=== PATIENT | male | born 1950 | race Caucasian/White ===

== ENCOUNTER 2016-09-08 09:57 | Observation (INO) | payer SELFPAY ==
--- NOTE | 2016-09-08 10:33 | ER Document Report ---
ED Neuro Symptoms/Deficit - General Mode of Arrival: Ambulatory Information source: Patient, Relative TRAVEL OUTSIDE OF THE [place] IN LAST 30 DAYS: No - HPI Patient complains to provider of: Other - confusion Associated symptoms: Other - See above <ABDI CHAVIS - Last Filed: 09/08/16 10:41> <KRISTAL PABLO - Last Filed: 09/08/16 12:00> - General Chief Complaint: Altered Mental Status Stated Complaint: Confusion Notes: Patient is a 65 year old male, with a past medical history including diabetes, who presents to the emergency department complaining of confusion for the past 3 days. Patient states that he has been having difficulty vocalizing where he is and concentrating in general. Patient also complains of heaviness/weakness in his right arm that began with the confusion on Sunday. It is unclear if his complaints were present when he woke up or not. Patient is currently on after having a boil drained on 08/30. Patient is also taking Metformin regularly. Patient is visiting the area from [place] and drove the 12 hours down 6 days ago. (ABDI CHAVIS) Patient's symptoms started 3 days ago, therefore he is not a TPA candidate. ( KRISTAL PABLO) - Related Data Allergies/Adverse Reactions: No Known Allergies Allergy (Unverified 09/08/16 10:07) Past Medical History - General Information source: Patient - Social History Smoking Status: Current Every Day Smoker Cigarette use (# per day): Yes - 1 ppd Frequency of alcohol use: Occasional Occupation: retired Family History: Reviewed & Not Pertinent Patient has suicidal ideation: No Patient has homicidal ideation: No Endocrine Medical History: Reports: Hx Diabetes Mellitus Type 2 Infectious Medical History: Reports: Other - Hx blood infection <ABDI CHAVIS - Last Filed: 09/08/16 10:41> Review of Systems - Review of Systems Constitutional: No symptoms reported EENT: No symptoms reported Cardiovascular: No symptoms reported Respiratory: No symptoms reported Gastrointestinal: No symptoms reported Genitourinary: No symptoms reported Male Genitourinary: No symptoms reported Musculoskeletal: No symptoms reported Skin: No symptoms reported Hematologic/Lymphatic: No symptoms reported Neurological/Psychological: See HPI, Confusion, Weakness -: Yes All other systems reviewed and negative <ABDI CHAVIS - Last Filed: 09/08/16 10:41> Physical Exam - Vital signs Interpretation: Normal - General General appearance: Appears well, Alert - HEENT Head: Normocephalic, Atraumatic Neck: No: Carotid bruit - Respiratory Respiratory status: No respiratory distress Chest status: Nontender Breath sounds: Normal Chest palpation: Normal - Cardiovascular Rhythm: Regular Heart sounds: Normal auscultation Murmur: No - Neurological Neuro grossly intact: Yes Cognition: Normal - slow in communicating Orientation: AAOx4 Jono Coma Scale Eye Opening: Spontaneous [place] Coma Scale Verbal: Oriented [place] Coma Scale Motor: Obeys Commands [place] Coma Scale Total: 15 Speech: Normal - clear Cerebellar coordination: Other - Finger-nose test fail on right side, patient went from finger to left chin. 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, Dorsiflexion - right 4/5, left 5/5 Sensory: Normal - Psychological Associated symptoms: Normal affect, Normal mood - Skin Skin Temperature: Warm Skin Moisture: Dry Skin Color: Normal <ABDI CHAVIS - Last Filed: 09/08/16 10:41> Course - Laboratory Result Diagrams: 09/08/16 10:20 09/08/16 10:20 <ABDI CHAVIS - Last Filed: 09/08/16 10:41> - Laboratory Result Diagrams: 09/08/16 10:20 09/08/16 10:20 - Diagnostic Test Radiology reviewed: Image reviewed, Reports reviewed - Old left parietal lacunar infarct - EKG Interpretation by Hi EKG shows normal: Sinus rhythm, [place], Intervals, QRS Complexes, ST-T Waves Rate: Normal - 82 Rhythm: NSR When compared to previous EKG there are: Previous EKG unavailable - Consults Crystal Alejandro Time consulted: 11:55 Consulted provider: will come to ER <KRISTAL PABLO - Last Filed: 09/08/16 12:00> - Vital Signs Vital signs: Temp Pulse Resp BP Pulse Ox 98.4 F 72 16 154/103 H 96 09/08/16 10:06 09/08/16 10:10 09/08/16 10:27 09/08/16 10:27 09/08/16 10:27 - Laboratory Laboratory results interpreted by me: 09/08/16 09/08/16 09/08/16 10:20 10:20 10:20 RBC 6.08 H MCH 26.9 L RDW 14.6 H Potassium 5.6 H Glucose 307 H Hemoglobin A1c % 11.5 H Calcium 10.8 H Direct Bilirubin 0.5 H Creatine Kinase 29 L Discharge <ABDI CHAVIS - Last Filed: 09/08/16 10:41> - Discharge Admitting Provider: Hospitalist Unit Admitted: IMCU <KRISTAL PABLO - Last Filed: 09/08/16 12:00> - Discharge Clinical Impression: Poorly controlled diabetes mellitus Cerebrovascular accident (CVA) Qualifiers: CVA mechanism: unspecified Qualified Code(s): I63.9 - Cerebral infarction, unspecified Hypertension Qualifiers: Hypertension type: unspecified secondary hypertension Qualified Code(s): I15.9 - Secondary hypertension, unspecified; I15 - Secondary hypertension Condition: Stable Disposition: ADMITTED INPATIENT Scribe Documentation - Scribe Written by Scribe:: janey Drake, 09/08/16, 1039 acting as scribe for :: Steph <ABDI CHAVIS - Last Filed: 09/08/16 10:41>
[2016-09-08 10:45] LABS: ABSOLUTE BASOPHILS # (AUTO) 0.1 10^3/uL (0.0-0.2); ABSOLUTE EOSINOPHILS # (AUTO) 0.4 10^3/uL (0.0-0.6); ABSOLUTE LYMPHOCYTES (AUTO) 2.5 10^3/uL (0.5-4.7); ABSOLUTE MONOCYTES (AUTO) 0.9 10^3/uL (0.1-1.4); ABSOLUTE NEUT (AUTO) 4.5 10^3/uL (1.7-8.2); BASOPHILS % (AUTO) 1.2 % (0-2); EOSINOPHILS % (AUTO) 4.5 % (0-6); HEMATOCRIT 49.4 % (37.9-51.0); HEMOGLOBIN 16.4 g/dL (13.5-17.0); HGB HCT DIFFERENCE -0.2; LYMPHOCYTES % (AUTO) 30.2 % (13-45); MEAN CORPUSCULAR HEMOGLOBIN 26.9 pg (27.0-33.4); MEAN CORPUSCULAR HGB CONC 33.1 g/dL (32.0-36.0); MEAN CORPUSCULAR VOLUME 81 fl (80-97); RED BLOOD COUNT 6.08 10^6/uL (4.35-5.55); RED CELL DISTRIBUTION WIDTH 14.6 % (11.5-14.0); SEGMENTED NEUTROPHILS % (AUTO) 53.1 % (42-78); WHITE BLOOD COUNT 8.4 10^3/uL (4.0-10.5)
[2016-09-08 10:52] LABS: PROTHROMBIN TIME 12.1 SEC (11.4-15.4)
[2016-09-08] MEDS ORDERED: ONDANSETRON HCL INJ/PF 4 MG/2 ML SDV IV ONE (11:00)
[2016-09-08 11:06] LABS: ALANINE AMINOTRANSFERASE 37 U/L (21-72); ALBUMIN 4.4 g/dL (3.5-5.0); ALKALINE PHOSPHATASE 113 U/L (38-126); ANION GAP 12 (5-19); ASPARTATE AMINO TRANSFERASE 38 U/L (17-59); BILIRUBIN,DIRECT 0.5 mg/dL (0.0-0.4); BILIRUBIN,TOTAL 0.7 mg/dL (0.2-1.3); BLOOD UREA NITROGEN 19 mg/dL (7-20); CALCIUM 10.8 mg/dL (8.4-10.2); CARBON DIOXIDE 27 mmol/L (22-30); CHLORIDE 98 mmol/L (98-107); CREATINE KINASE 29 U/L (55-170); CREATININE RESULT 0.89 mg/dL (0.52-1.25); GLUCOSE 307 mg/dL (75-110); POTASSIUM 5.6 mmol/L (3.6-5.0); SODIUM 137.2 mmol/L (137-145); TOTAL PROTEIN 7.9 g/dL (6.3-8.2)
[2016-09-08 11:17] LABS: CREATINE KINASE MB 0.29 ng/mL (<4.55)
[2016-09-08 11:18] LABS: TROPONIN I < 0.012 ng/mL
--- NOTE | 2016-09-08 11:50 | RADIOLOGY REPORT (SQ) ---
EXAM DESCRIPTION: CT HEAD WITHOUT COMPLETED DATE/TIME: 09/08/2016 11:29 am REASON FOR STUDY: confusion, R side weakness x 3 days COMPARISON: None. TECHNIQUE: Axial images acquired through the brain without intravenous contrast. Images reviewed wi th bone, brain and subdural windows. Images stored on PACS. All CT scanners at this facility use dose modulation, iterative reconstruction, and/or weight based d osing when appropriate to reduce radiation dose to as low as reasonably achievable (ALARA). [facility]: Dose Right [facility]: CareDose [facility]: Dose Right [facility]: Teradose 4D [facility]: Smart Oxsensis RADIATION DOSE: Up-to-date CT equipment and radiation dose reduction techniques were employed. CTDIv ol: 64.6 mGy. DLP: 1163 mGy-cm. mGy. LIMITATIONS: None. FINDINGS: VENTRICLES: Normal size and contour. CEREBRUM: No masses. No hemorrhage. No midline shift. Normal arteaga/white matter differentiation. N o evidence for acute infarction. There is an 8 mm low-density lesion in the left parietal lobe on im age 23. CEREBELLUM: No masses. No hemorrhage. No alteration of density. No evidence for acute infarction. EXTRAAXIAL SPACES: No fluid collections. No masses. ORBITS AND GLOBE: No intra- or extraconal masses. Normal contour of globe without masses. CALVARIUM: No fracture. PARANASAL SINUSES: No fluid or mucosal thickening. SOFT TISSUES: No mass or hematoma. OTHER: No other significant finding. IMPRESSION: 1. There is no acute intracranial pathology. 2. There is an 8 mm low-density lesion in the left parietal lobe suggestive of a small old lacunar i nfarct versus perivascular space. TECHNICAL DOCUMENTATION: JOB ID: [id number] Quality ID # [id number]: Final reports with documentation of one or more dose reduction techniques (e.g., Au tomated exposure control, adjustment of the mA and/or kV according to patient size, use of iterative reconstruction technique) 2010 [employer]- All Rights Reserved
[2016-09-08] MEDS ORDERED: TEMAZEPAM 15 MG CAPSULE PO PRN (12:16)
[2016-09-08] MEDS ORDERED: MAGNESIUM HYDROXIDE SUSP 30 ML UDCUP PO PRN (12:16)
[2016-09-08] MEDS ORDERED: ACETAMINOPHEN 325 MG TABLET PO PRN ×2 (12:16→17:53)
[2016-09-08] MEDS ORDERED: ONDANSETRON HCL INJ/PF 4 MG/2 ML SDV IV PRN (12:16)
[2016-09-08] MEDS ORDERED: GLUCAGON,HUMAN RECOMB 1 MG INJ IM PRN (12:45)
[2016-09-08] MEDS ORDERED: DEXTROSE 50%-WATER 25 GM/50 ML DISP.SYRIN IV PRN ×2 (12:45)
[2016-09-08] MEDS ORDERED: DEXTROSE 40% GEL 15 GM TUBE PO PRN ×2 (12:45)
--- NOTE | 2016-09-08 13:49 | PDOC H&P ---
History of Present Illness Admission Date/PCP: 09/08/16 12:26 Patient complains of: Right upper arm weakness, right visual field disturbance History of Present Illness: Patient is a 65 year old male, with a past medical history including diabetes, and tobacco abuse, who presents to the emergency department complaining of confusion for the past 3 days and right arm weakness. Patient states that he has been having difficulty vocalizing where he is and concentrating in general. Patient also complains of heaviness/weakness in his right arm that began with the confusion on Sunday. It is unclear if his complaints were present when he woke up or not. Patient is currently on Bactrim after having a boil drained on 08/30. Patient is also taking Metformin regularly. Patient is visiting the area from [place] and drove the 12 hours down 6 days ago. He denies any weakness in his right leg. His states he has been stumbling. Past Medical History Cardiac Medical History: Reports: None Pulmonary Medical History: Reports: None EENT Medical History: Reports: None Neurological Medical History: Reports: None Endocrine Medical History: Reports: Diabetes Mellitus Type 2 Renal/ Medical History: Reports: None Malignancy Medical History: Reports: None GI Medical History: Reports: None Musculoskeltal Medical History: Reports: None Skin Medical History: Reports: None Psychiatric Medical History: Reports: None Traumatic Medical History: Reports: None Hematology: Reports: None Infectious Medical History: Reports: None Past Surgical History Past Surgical History: Reports: Appendectomy Social History Information Source: Patient Lives with: Spouse/Significant other Smoking Status: Current Every Day Smoker Cigarettes Packs Per Day: 1 Number of Years Smokin Last Time Smoked: today Frequency of Alcohol Use: Occasional Hx Recreational Drug Use: No Hx Prescription Drug Abuse: No - Advance Directive Resuscitation Status: Full Code Surrogate healthcare decision maker:: , Ness iL Family History Family History: DM Parental Family History Reviewed: Yes Children Family History Reviewed: Yes Sibling(s) Family History Reviewed.: Yes Medication/Allergy Allergies/Adverse Reactions: No Known Allergies Allergy (Unverified 09/08/16 10:07) Review of Systems Constitutional: ABSENT: chills, fever(s), headache(s), weight gain, weight loss Eyes: ABSENT: visual disturbances Ears: ABSENT: hearing changes Cardiovascular: ABSENT: chest pain, dyspnea on exertion, edema, orthropnea, palpitations Respiratory: ABSENT: cough, hemoptysis Gastrointestinal: ABSENT: abdominal pain, constipation, diarrhea, hematemesis, hematochezia, nausea, vomiting Genitourinary: ABSENT: dysuria, hematuria Musculoskeletal: PRESENT: muscle weakness - right arm 3/5 weakness Integumentary: ABSENT: rash, wounds Neurological: PRESENT: abnormal movements, lack of coordination, memory loss, paresthesias - Right upper arm, weakness. ABSENT: abnormal gait, abnormal speech, confusion, dizziness, focal weakness, syncope Psychiatric: ABSENT: anxiety, depression, homidical ideation, suicidal ideation Endocrine: ABSENT: cold intolerance, heat intolerance, polydipsia, polyuria Hematologic/Lymphatic: ABSENT: easy bleeding, easy bruising Physical Exam Vital Signs: Temp Pulse Resp BP Pulse Ox 98.2 F 72 17 147/89 H 94 09/08/16 12:44 09/08/16 12:00 09/08/16 12:44 09/08/16 12:44 09/08/16 12:44 General appearance: PRESENT: no acute distress, obese, well-developed, well- nourished Head exam: PRESENT: atraumatic, normocephalic Eye exam: PRESENT: conjunctival injection Ear exam: PRESENT: normal external ear exam Mouth exam: PRESENT: moist, tongue midline Neck exam: ABSENT: carotid bruit, JVD, lymphadenopathy, thyromegaly Respiratory exam: PRESENT: clear to auscultation shawanda. ABSENT: rales, rhonchi, wheezes Cardiovascular exam: PRESENT: RRR. ABSENT: diastolic murmur, rubs, systolic murmur Pulses: PRESENT: normal dorsalis pedis pul Vascular exam: PRESENT: normal capillary refill GI/Abdominal exam: PRESENT: normal bowel sounds, soft. ABSENT: distended, guarding, mass, organolmegaly, rebound, tenderness Rectal exam: PRESENT: deferred Extremities exam: PRESENT: full ROM. ABSENT: calf tenderness, clubbing, pedal edema Neurological exam: PRESENT: alert, awake, oriented to person, oriented to place , oriented to time, oriented to situation, abnormal gait, ataxia, CN II-XII grossly intact. ABSENT: motor sensory deficit Psychiatric exam: PRESENT: appropriate affect, normal mood. ABSENT: homicidal ideation, suicidal ideation Skin exam: PRESENT: dry, intact, warm. ABSENT: cyanosis, rash Results Impressions: Head CT 09/08/16 10:26 IMPRESSION: 1. There is no acute intracranial pathology. 2. There is an 8 mm low-density lesion in the left parietal lobe suggestive of a small old lacunar infarct versus perivascular space. Assessment & Plan - Diagnosis (1) Poorly controlled diabetes mellitus Is this a current diagnosis for this admission?: YesPlan: Patient is presently on metformin and glyburide. Will add sliding scale insulin and adjust po medications (2) CVA (cerebral vascular accident) Qualifiers: CVA mechanism: unspecified Qualified Code(s): I63.9 - Cerebral infarction, unspecified Is this a current diagnosis for this admission?: YesPlan: Right arm weakness, right hemianopsia. will obtain MRI and carotid duplex. PT and OT referrals (4) Tobacco abuse Is this a current diagnosis for this admission?: YesPlan: Patient counseled on need to quit smoking. Will provide with nicotine patch and prn anxiolytic (5) Dyslipidemia Is this a current diagnosis for this admission?: YesPlan: Unknown lipid history. Will place on a statin and obtain fasting lipids in the am (6) Hyperkalemia Is this a current diagnosis for this admission?: YesPlan: Patient denies history of renal disease. He is on Bactrim with high glucose levels will d/c bactrim, reolace with doxycyline - Time Time Spent: 50 to 70 Minutes Critical Time spent with patient: 25-34 minutes Smoking Cessation Education: 3 to 10 minutes Medications reviewed and adjusted accordingly: Yes Anticipated discharge: Home - Inpatient Certification Based on my medical assessment, after consideration of the patient's comorbidities, presenting symptoms, or acuity I expect that the services needed warrant INPATIENT care.: Yes I certify that my determination is in accordance with my understanding of Medicare's requirements for reasonable and necessary INPATIENT services [42 CFR 412.3e].: Yes
[2016-09-08] MEDS ORDERED: NICOTINE 21 MG/24 HR PATCH.TD24 TD ONE (14:00)
--- NOTE | 2016-09-08 17:09 | RADIOLOGY REPORT (SQ) ---
EXAM DESCRIPTION: CAROTID DOPPLER COMPLETED DATE/TIME: 09/08/2016 4:46 pm REASON FOR STUDY: acute neurologic syndrome COMPARISON: None. TECHNIQUE: Grayscale ultrasound, Doppler velocity and spectra, and color Doppler images acquired of the extra-cranial carotid and vertebral arteries. Images stored on PACS. LIMITATIONS: None. FINDINGS: RIGHT CAROTID CCA Velocities: 45 centimeters/second ICA Velocities Peak systolic 125 centimeters/second. End diastolic 50 centimeters/second. Proximal ICA/CCA peak systolic ratio 3.4. There is considerable plaque in the carotid bulb and proximal internal carotid artery. LEFT CAROTID CCA Velocities: 59 centimeters/second ICA Velocities Peak systolic 100 centimeters/second. End diastolic 21 centimeters/second. Proximal ICA/CCA peak systolic ratio 1.7. There is plaque in the proximal internal carotid artery. VERTEBRAL ARTERIES: Antegrade flow. Normal waveforms. SUBCLAVIAN ARTERIES: No finding. OTHER: No other significant finding. IMPRESSION: There are atherosclerotic changes bilaterally. There is proximally 50 to 69% stenosis o f the right internal carotid and less than 50% stenosis of the left internal carotid. COMMENT: Quality ID #[id number]: Velocity criteria are extrapolated from the diameter data as defined by t he Society of Radiologists in Ultrasound Consensus Conference. Radiology 2003: 229; 340-346. TECHNICAL DOCUMENTATION: JOB ID: [id number] [employer]- All Rights Reserved
[2016-09-08] MEDS: LORAZEPAM 0.5 MG TABLET PO SCH (17:50)
[2016-09-08] MEDS: GLIPIZIDE XL 5 MG TAB.ER.24 PO SCH (17:51)
[2016-09-08] MEDS: DOXYCYCLINE HYCLATE 100 MG TABLET PO SCH (17:51)
[2016-09-08] MEDS: HEPARIN SOD (PORCINE) 5,000 UNIT/ML 1 ML SYRINGE SUBCUT SCH ×2 (17:54→22:47)
[2016-09-08] MEDS ORDERED: SIMVASTATIN 40 MG TABLET PO SCH (22:00)
--- NOTE | 2016-09-08 22:13 | RADIOLOGY REPORT (SQ) ---
EXAM DESCRIPTION: MRI HEAD WITHOUT COMPLETED DATE/TIME: 09/08/2016 8:17 pm REASON FOR STUDY: acute neurologic syndrome COMPARISON: None. TECHNIQUE: Multiplanar imaging includes non-contrasted T1, T2, FLAIR, and Diffusion with ADC map seq uences. Images stored on PACS. LIMITATIONS: None. FINDINGS: ANATOMY: No anomalies. Central vascular flow voids are within normal limits. Pituitary fo ssa normal. CSF SPACES: Normal in size and contour. No hemorrhage. CEREBRUM: Positive for acute or sub-acute infarction in multiple small areas in the posterior left oc cipital and parietal lobes with increased signal in the white matter on FLAIR imaging. Old left fron totemporal lacunar infarct. Remaining Sulci and gyri normal in size and contour. No evidence of hem orrhage or extraaxial fluid collection. POSTERIOR FOSSA: No signal alteration. No hemorrhage. No edema, masses or mass effect. Internal keyonna tory canals, cerebello-pontine angles, mastoids normal. DIFFUSION: Positive for acute or sub-acute infarction in multiple small areas in the posterior left o ccipital and parietal lobes. ORBITS: No masses. Globes normal. PARANASAL SINUSES: No fluid levels. Mucosa normal. OTHER: No other significant finding. IMPRESSION: Positive for acute or sub-acute infarction in multiple small areas in the posterior left occipital and parietal lobes. TECHNICAL DOCUMENTATION: JOB ID: [id number] [employer]- All Rights Reserved
[2016-09-08] MEDS: INSULIN LISPRO 100 UNIT/ML 3 ML VIAL SUBCUT PRN (22:46)
[2016-09-09] MEDS: LORAZEPAM 0.5 MG TABLET PO SCH ×3 (04:18→12:41)
--- NOTE | 2016-09-09 04:39 | RADIOLOGY REPORT (SQ) ---
EXAM DESCRIPTION: CT HEAD WITHOUT COMPLETED DATE/TIME: 09/09/2016 3:54 am REASON FOR STUDY: CVA COMPARISON: CT and MRI, 1 day prior. TECHNIQUE: Axial images acquired through the brain without intravenous contrast. Images reviewed wi th bone, brain and subdural windows. Images stored on PACS. All CT scanners at this facility use dose modulation, iterative reconstruction, and/or weight based d osing when appropriate to reduce radiation dose to as low as reasonably achievable (ALARA). [facility]: Dose Right [facility]: CareDose [facility]: Dose Right [facility]: Teradose 4D [facility]: Smart [place]-Tetra RADIATION DOSE: Up-to-date CT equipment and radiation dose reduction techniques were employed. CTDIv ol: 64.6 mGy. DLP: 1163 mGy-cm. mGy. LIMITATIONS: None. FINDINGS: VENTRICLES: Normal size and contour. CEREBRUM: Small areas of cytotoxic edema of the left posterior parietal lobe and the left occipital l obe consistent with areas of subacute ischemia. Indeterminate 0.9 cm low-attenuation lesion of the l eft parietal white matter. Nebl-sc-tyfwrltt cerebral volume loss. CEREBELLUM: No masses. No hemorrhage. No alteration of density. No evidence for acute infarction. EXTRAAXIAL SPACES: No fluid collections. No masses. ORBITS AND GLOBE: No intra- or extraconal masses. Normal contour of globe without masses. CALVARIUM: No fracture. PARANASAL SINUSES: No fluid or mucosal thickening. SOFT TISSUES: No mass or hematoma. OTHER: No other significant finding. IMPRESSION: Small areas of subacute ischemia of the left posterior parietal lobe and left occipital lobe consistent with MRI, 1 day prior. Indeterminate 0.9 cm low-attenuation lesion of left parietal white matter. Recommend further baseline evaluation with contrast MRI of the brain. TECHNICAL DOCUMENTATION: JOB ID: [id number] Quality ID # [id number]: Final reports with documentation of one or more dose reduction techniques (e.g., Au tomated exposure control, adjustment of the mA and/or kV according to patient size, use of iterative reconstruction technique) 2010 [employer]- All Rights Reserved
[2016-09-09 04:48] LABS: ABSOLUTE BASOPHILS # (AUTO) 0.1 10^3/uL (0.0-0.2); ABSOLUTE EOSINOPHILS # (AUTO) 0.4 10^3/uL (0.0-0.6); ABSOLUTE LYMPHOCYTES (AUTO) 2.4 10^3/uL (0.5-4.7); ABSOLUTE MONOCYTES (AUTO) 0.8 10^3/uL (0.1-1.4); ABSOLUTE NEUT (AUTO) 3.3 10^3/uL (1.7-8.2); BASOPHILS % (AUTO) 1.4 % (0-2); EOSINOPHILS % (AUTO) 5.3 % (0-6); HEMATOCRIT 47.2 % (37.9-51.0); HEMOGLOBIN 15.2 g/dL (13.5-17.0); HGB HCT DIFFERENCE -1.6; LYMPHOCYTES % (AUTO) 34.5 % (13-45); MEAN CORPUSCULAR HEMOGLOBIN 26.3 pg (27.0-33.4); MEAN CORPUSCULAR HGB CONC 32.2 g/dL (32.0-36.0); MEAN CORPUSCULAR VOLUME 82 fl (80-97); MONOCYTES % (AUTO) 11.8 % (3-13); RED BLOOD COUNT 5.78 10^6/uL (4.35-5.55); RED CELL DISTRIBUTION WIDTH 14.6 % (11.5-14.0)
[2016-09-09] MEDS ORDERED: MORPHINE SULFATE 10 MG/ML INJ IV ONE (05:00)
[2016-09-09 05:02] LABS: ANION GAP 11 (5-19); BLOOD UREA NITROGEN 23 mg/dL (7-20); CALCIUM 10.2 mg/dL (8.4-10.2); CARBON DIOXIDE 26 mmol/L (22-30); CHLORIDE 99 mmol/L (98-107); CHOLESTEROL 164.58 mg/dL (0-200); CREATININE RESULT 0.71 mg/dL (0.52-1.25); Direct HDL 26 mg/dL (>40); GLUCOSE 244 mg/dL (75-110); POTASSIUM 4.8 mmol/L (3.6-5.0); SODIUM 135.6 mmol/L (137-145); TRIGLYCERIDES 297 mg/dL (<150)
[2016-09-09 05:12] LABS: DIRECT LDL 97 mg/dL (<100)
[2016-09-09 05:18] LABS: VLDL CHOLESTEROL 59.4 mg/dL (10-31)
[2016-09-09] MEDS: DOXYCYCLINE HYCLATE 100 MG TABLET PO SCH (06:05)
[2016-09-09] MEDS: HEPARIN SOD (PORCINE) 5,000 UNIT/ML 1 ML SYRINGE SUBCUT SCH (07:01)
[2016-09-09] MEDS ORDERED: METFORMIN HCL 850 MG TABLET PO SCH (08:00)
[2016-09-09] MEDS ORDERED: METFORMIN HCL 500 MG TABLET PO SCH (08:00)
[2016-09-09] MEDS: INSULIN LISPRO 100 UNIT/ML 3 ML VIAL SUBCUT PRN (08:04)
[2016-09-09] MEDS ORDERED: KETOROLAC TROMETHAMINE INJ/PF 30 MG/1 ML SDV IV ONE (09:00)
[2016-09-09] MEDS ORDERED: ASPIRIN 325 MG TABLET, ENT COATED PO SCH (10:00)
[2016-09-09] MEDS: GLIPIZIDE XL 5 MG TAB.ER.24 PO SCH (10:37)
[2016-09-09 12:15] VITALS: BP 146/85
--- NOTE | 2016-09-09 12:46 | PDOC DISCHARGE SUMMARY ---
General - Admit/Disc Date/PCP Admission Date/Primary Care Provider: 09/08/16 12:26 Discharge Date: 09/09/16 - Discharge Diagnosis (1) CVA (cerebral vascular accident) Is this a current diagnosis for this admission?: YesSummary: Several small acute infarcts noted in left occipatal and parietal lobes. He has right eye hemianopsia and right hand fine motor weakness. Started on aspirin 325 mg daily and Simvastin 40 mg daily. Smoking cessation stressed (2) Poorly controlled diabetes mellitus Is this a current diagnosis for this admission?: YesSummary: Counseled. He plans on quitting smoking (3) Tobacco abuse Is this a current diagnosis for this admission?: Yes (4) Obesity (BMI 30.0-34.9) Is this a current diagnosis for this admission?: Yes (5) Dyslipidemia Is this a current diagnosis for this admission?: YesSummary: Continue statin. Increase exercise and tobacco cessation (6) Hyperkalemia Is this a current diagnosis for this admission?: YesSummary: Resolved. Patient had been on Bactrim for an abcess. This was discontinued and replaced by Doxycyline - Additional Information Resuscitation Status: Full Code Discharge Diet: Diabetic Discharge Activity: Activity As Tolerated, Balance Activity w/Rest, No Driving, Supervised Activity Home Medications: Glipizide [Glipizide Xl] 5 mg PO DAILY 09/08/16 Metformin HCl [Glucophage] 850 mg PO BIDACBS 09/08/16 Acetaminophen [Tylenol 325 mg Tablet] 650 mg PO Q4HP PRN tablet 09/09/16 Aspirin [Ecotrin 325 mg EC Tablet] 325 mg PO DAILY tabec 09/09/16 Glipizide [Glocotrol 5 Mg Tablet] 5 mg PO BID #60 tablet 09/09/16 Metformin HCl [Glucophage] 1,000 mg PO BID #60 tablet 09/09/16 Simvastatin 40 mg PO QHS #30 tablet 09/09/16 History of Present Illness Patient complains of: Right arm weakness and right eye visual disturbances 3 days prior History of Present Illness: Patient is a 65 year old male, with a past medical history including diabetes, and tobacco abuse, who presents to the emergency department complaining of confusion for the past 3 days and right arm weakness. Patient states that he has been having difficulty vocalizing where he is and concentrating in general. Patient also complains of heaviness/weakness in his right arm that began with the confusion on Sunday. It is unclear if his complaints were present when he woke up or not. Patient is currently on Bactrim after having a boil drained on 08/30. Patient is also taking Metformin regularly. Patient is visiting the area from [place] and drove the 12 hours down 6 days ago. He denies any weakness in his right leg. His states he has been stumbling. Hospital Course Hospital Course: Patient was admitted to [facility] on telemetry. He underwent an MRI which showed acute/subacute infarcts in left parietal and occipital regions. He underwent carotid duplex which showed 50% stenosis on the left 50-69% stenosis on the right. His HBA1C was elevated at 11. His metformin and glyburide doses were increased and he was started on sliding scale insulin. He was seen by physical therapy who recommend home physical therapy and occupational therapy. He had a frontal headache overnight. Repeat CT scan was obtained which showed no new findings. Headache this morning resolved with IV toradol. He will be discharged home to his daughter's house. He is agreeable to home physical and occupational therapy. Physical Exam Vital Signs: Temp Pulse Resp BP Pulse Ox 98.0 F 86 20 146/85 H 100 09/09/16 12:00 09/09/16 12:00 09/09/16 12:00 09/09/16 12:00 09/09/16 12:00 Intake & Output 09/08/16 09/09/16 09/10/16 06:59 06:59 06:59 Intake Total 308 614 Balance 308 614 Weight 103.5 kg General appearance: PRESENT: no acute distress, obese, well-developed, well- nourished Head exam: PRESENT: atraumatic, normocephalic Eye exam: PRESENT: conjunctiva pink, EOMI, PERRLA. ABSENT: scleral icterus Ear exam: PRESENT: normal external ear exam Mouth exam: PRESENT: moist, tongue midline Neck exam: ABSENT: carotid bruit, JVD, lymphadenopathy, thyromegaly Respiratory exam: PRESENT: clear to auscultation shawanda. ABSENT: rales, rhonchi, wheezes Cardiovascular exam: PRESENT: RRR. ABSENT: diastolic murmur, rubs, systolic murmur Pulses: PRESENT: normal dorsalis pedis pul Vascular exam: PRESENT: normal capillary refill GI/Abdominal exam: PRESENT: normal bowel sounds, soft. ABSENT: distended, guarding, mass, organolmegaly, rebound, tenderness Rectal exam: PRESENT: deferred Extremities exam: PRESENT: full ROM. ABSENT: calf tenderness, clubbing, pedal edema Musculoskeletal exam: PRESENT: ambulatory, full ROM, normal inspection Neurological exam: PRESENT: alert, awake, oriented to person, oriented to place , oriented to time, oriented to situation, CN II-XII grossly intact, other - right hand fine motor dysfunction and right. ABSENT: motor sensory deficit Psychiatric exam: PRESENT: appropriate affect, normal mood. ABSENT: homicidal ideation, suicidal ideation Skin exam: PRESENT: dry, intact, warm. ABSENT: cyanosis, rash Results Laboratory Results: 09/09/16 04:07 09/09/16 04:07 09/09/16 09/09/16 04:07 04:07 WBC 7.0 RBC 5.78 H Hgb 15.2 Hct 47.2 MCV 82 MCH 26.3 L MCHC 32.2 RDW 14.6 H Plt Count 263 Seg Neutrophils % 47.0 Lymphocytes % 34.5 Monocytes % 11.8 Eosinophils % 5.3 Basophils % 1.4 Absolute Neutrophils 3.3 Absolute Lymphocytes 2.4 Absolute Monocytes 0.8 Absolute Eosinophils 0.4 Absolute Basophils 0.1 Sodium 135.6 L Potassium 4.8 Chloride 99 Carbon Dioxide 26 Anion Gap 11 BUN 23 H Creatinine 0.71 Est GFR ( Amer) > 60 Est GFR (Non-Af Amer) > 60 Glucose 244 H Calcium 10.2 Triglycerides 297 H Cholesterol 164.58 LDL Cholesterol Direct 97 VLDL Cholesterol 59.4 H HDL Cholesterol 26 L Impressions: Head MRI 09/08/16 12:44 IMPRESSION: Positive for acute or sub-acute infarction in multiple small areas in the posterior left occipital and parietal lobes. Carotid Doppler Study 09/08/16 12:45 IMPRESSION: There are atherosclerotic changes bilaterally. There is proximally 50 to 69% stenosis of the right internal carotid and less than 50% stenosis of the left internal carotid. Head CT 09/09/16 00:00 IMPRESSION: Small areas of subacute ischemia of the left posterior parietal lobe and left occipital lobe consistent with MRI, 1 day prior. Indeterminate 0.9 cm low-attenuation lesion of left parietal white matter. Recommend further baseline evaluation with contrast MRI of the brain. Qualifiers PATEINT BEING DISCHARGED WITH ANY OF THE FOLLOWING DIAGNOSIS?: Stroke Plan Discharge Plan: Home with home physical therapy and occupational therapy Time Spent: Less than 30 Minutes
--- NOTE | 2016-09-09 17:36 | EKG REPORT ---
SEVERITY:- NORMAL ECG - SINUS RHYTHM : Confirmed by: Fatimah Osborn 09-Sep-2016 17:36:02
== END 2016-09-09 13:40 | disposition home health service (06) ==
LOC: ER 09:57 → EH 12:26 → INTOOBSV 12:26 → 3N 16:11
PROVIDERS: ADMIT Family Medicine; ATTEND Family Medicine
PROC: HZ31ZZZ Individual Counseling for Substance Abuse Treatment, Behavioral (ICD-10-PCS; principal; 2016-09-08)
DX: I63.9 Cerebral infarction, unspecified (principal); G81.91 Hemiplegia, unspecified affecting right dominant side; H53.47 Heteronymous bilateral field defects; E11.65 Type 2 diabetes mellitus with hyperglycemia; E66.9 Obesity, unspecified; E78.5 Hyperlipidemia, unspecified; E87.5 Hyperkalemia; L02.91 Cutaneous abscess, unspecified; I65.23 Occlusion and stenosis of bilateral carotid arteries; R51 Headache; F17.210 Nicotine dependence, cigarettes, uncomplicated; I15.9 Secondary hypertension, unspecified; Z79.899 Other long term (current) drug therapy; Z79.84 Long term (current) use of oral hypoglycemic drugs; Z79.82 Long term (current) use of aspirin; Z90.49 Acquired absence of other specified parts of digestive tract; Z83.3 Family history of diabetes mellitus; Z68.31 Body mass index [BMI] 31.0-31.9, adult
CPT/HCPCS: 93005; 36415 ×2; 82553; 82962 ×2; 82550; 85025 ×2; 85610; 80048; 80053; 84484; 83036; 80061; 93880; 70551; 70450 ×2; 93010; 97162; 99406; J1644; J1815 ×2; J2270; J3490 ×2; 99285; G0378